=== PATIENT | female | born 1935 | race Native Hawaiian/Other Pacific Islander ===

== ENCOUNTER 2017-10-21 14:25 | Emergency (ER) | payer MEDICARE, OTHER ==
[~2017-10-21] VITALS: Ht 154.9 cm; Wt 88.2 kg
[2017-10-21] MEDS ORDERED: GABA-531 PO (14:46)
[2017-10-21] MEDS ORDERED: LIRA0.6P SQ (14:46)
[2017-10-21] MEDS ORDERED: METF500T4 PO (14:46)
[2017-10-21] MEDS ORDERED: HYDR25TA PO (14:46)
[2017-10-21] MEDS ORDERED: ALLO100T PO (14:46)
[2017-10-21] MEDS ORDERED: TELM20 PO (14:47)
[2017-10-21 14:52] LABS: GLUCOSE,POINT OF CARE 138 MG/DL (70-110)
[2017-10-21] MEDS ORDERED: DiphenhydrAMINE HCL 25 MG CAPSULE PO ONE (18:00)
[2017-10-21] MEDS ORDERED: IBUPROFEN 600 MG TABLET PO ONE (18:00)
[2017-10-21 18:14] LABS: BASOPHILS # (AUTO) 0.07 K/uL (0.00-0.20); BASOPHILS % (AUTO) 0.6 % (0.0-2.0); EOSINOPHILS # (AUTO) 0.31 K/uL (0.00-0.70); EOSINOPHILS % (AUTO) 2.47 % (1.0-6.0); HEMATOCRIT 34.9 % (36-46); HEMOGLOBIN 11.7 g/dL (12.0-16.0); LYMPHOCYTES # (AUTO) 3.6 K/uL (1.0-4.8); LYMPHOCYTES % (AUTO) 28.7 % (22.0-44.0); MEAN CORPUSCULAR HEMOGLOBIN 31.8 pg (26.0-34.0); MEAN CORPUSCULAR HGB CONC 33.4 G/dL (31.0-37.0); MEAN CORPUSCULAR VOLUME 95 fL (80-100); MONOCYTES # (AUTO) 0.8 K/uL (0.1-1.0); MONOCYTES % (AUTO) 6.5 % (2.0-9.0); NEUTROPHILS # (AUTO) 7.8 K/uL (1.8-7.7); NEUTROPHILS % (AUTO) 61.7 % (40.0-70.0); PLATELET COUNT (AUTO) 348 K/uL (150-450); RED BLOOD CELL COUNT(AUTO) 3.67 MIL/uL (4.00-5.20); RED CELL DISTRIBUTION WIDTH 15.1 % (11.5-14.5)
[2017-10-21 18:23] LABS: CALCIUM, TOTAL 9.3 mg/dL (8.8-10.5); POTASSIUM 3.5 mmol/L (3.5-5.1)
[2017-10-21 18:28] LABS: ALBUMIN 3.4 g/dL (3.4-5.0); BILIRUBIN,TOTAL 0.4 mg/dL (0.1-1.0); TOTAL PROTEIN, SERUM 8.2 g/dL (6.4-8.2)
[2017-10-21] MEDS ORDERED: CLINDAMYCIN HCL 150 MG CAPSULE PO ONE (19:00)
[2017-10-21] MEDS ORDERED: CefTRIAXone SODIUM 1 GM/VIAL IM ONE (19:00)
[2017-10-21] MEDS ORDERED: LIDOCAINE HCL/PF 1% 2 ML VIAL IM ONE (19:00)
[2017-10-21 19:16] VITALS: BP 129/80
== END 2017-10-21 19:18 | disposition home or self-care (01) ==
LOC: EMS 14:26
DX: L03.114 Cellulitis of left upper limb (principal); M79.89 Other specified soft tissue disorders; E11.9 Type 2 diabetes mellitus without complications; E78.00 Pure hypercholesterolemia, unspecified; I10 Essential (primary) hypertension; Z88.0 Allergy status to penicillin; Z88.2 Allergy status to sulfonamides
CPT/HCPCS: 36415; 80053; 82962; 85025; 96372; 99284; J0696; J3490